=== PATIENT | female | born 1940 | race Two or more races ===

== ENCOUNTER 2018-09-17 05:16 | Inpatient (IN) | payer OTHER ==
[~2018-09-17] VITALS: Ht 170.2 cm; Wt 117.1 kg
--- NOTE | 2018-09-17 05:43 | NUR ---
MS RN NOTES: PATIENT CAME TO THE FLOOR, AWAKE ALERT AND ORIENTED X4, AMBULATORY. NOT IN RESPIRATORY DISTRESS. SCHEDULED FOR SX OF THE RIGHT KNEE REPLACEMENT. JEWELRIES REMOVED EXCEPT THE RIGHT HAND FINGER WEDDING RING, CLOTHINGS REMOVED AND GOWN ON. PATIENT STATED SHE IS NPO SINCE 2330 LAST NIGHT.
[2018-09-17] MEDS ORDERED: METOCLOPRAMIDE HCL 10 MG/2 ML VIAL IV ONE (06:00)
[2018-09-17] MEDS ORDERED: CELECOXIB 100 MG CAPSULE PO ONE (06:00)
[2018-09-17] MEDS ORDERED: oxyCODONE HCL SR 10MG TAB.SR.12H PO ONE (06:00)
--- NOTE | 2018-09-17 06:23 | NUR ---
CONSENT FOR RIGHT KNEE REPLACEMENT AND BLOOD TRANSFUSION SIGNED BY THE PATIENT AND ATTACHED TO THE CHART. COPIES MADE AND GIVEN TO THE PATIENT.
[2018-09-17] MEDS ORDERED: BUPIVACAINE MPF 0.5% W/EPI INJ 30 ML VIAL ONE (06:40)
[2018-09-17] MEDS ORDERED: KETOROLAC TROMETHAMINE INJ 30 MG/ML VIAL ONE ×2 (06:40→10:34)
[2018-09-17] MEDS ORDERED: ANESTHESIA TRAY IN PYXIS 1 EA TRAY MC ONE (06:40)
[2018-09-17] MEDS ORDERED: MORPHINE SULFATE INJ 4 MG/ML DISP.SYRIN ONE (06:40)
[2018-09-17] MEDS ORDERED: BACITRACIN 50000 UNITS/VIAL ONE (06:40)
[2018-09-17] MEDS ORDERED: MIDAZOLAM HCL 2 MG/2ML VIAL ONE (07:12)
[2018-09-17] MEDS ORDERED: ROCURONIUM BROMIDE 50 MG/5 ML ONE (07:13)
[2018-09-17] MEDS ORDERED: FENTANYL PF 250MCG/5ML AMPUL ONE ×2 (07:13)
[2018-09-17] MEDS ORDERED: FAMOTIDINE/PF INJ 20 MG/2 ML VIAL IV ONE (07:14)
--- NOTE | 2018-09-17 07:18 | NUR ---
MS RN CLOSING NOTES: PATIENT WAS PICKED UP FOR SX AT 0650. CALLED SABINE AT [id number] RE: PRE-OP MEDS ARE NOT GIVEN PRIOR FOR PICK-UP, MEDS ARE NOT AVAILABLE YET FROM THE [facility].
[2018-09-17] MEDS ORDERED: TRANEXAMIC ACID 1,500 MG in IV NS 0.9% 50 ML IV ONE (08:00)
[2018-09-17] MEDS ORDERED: ACETAMINOPHEN ES 500 MG TABLET PO ONE (08:44)
[2018-09-17] MEDS ORDERED: FENTANYL PF 100MCG/2ML AMPUL ONE ×2 (10:34→10:54)
[2018-09-17] MEDS ORDERED: oxyCODONE IR immediate release 5 MG ONE (11:09)
[2018-09-17] MEDS ORDERED: ASPIRIN 325 MG TABLET PO ONE (11:30)
[2018-09-17] MEDS ORDERED: COLACE 100 MG CAPSULE PO PRN (12:00)
[2018-09-17] MEDS: ONDANSETRON HCL/PF 4 MG/2 ML VIAL IVP SCH ×2 (12:00→18:00)
[2018-09-17] MEDS ORDERED: TYLENOL 650 MG TABLET PO PRN (12:00)
[2018-09-17] MEDS ORDERED: AMBIEN 5 MG TABLET PO PRN (12:00)
[2018-09-17] MEDS ORDERED: DULCOLAX 10 MG/SUPP.RECT RC PRN (12:00)
[2018-09-17] MEDS ORDERED: HYDROMORPHONE 1 MG/1 ML DISP.SYRIN IV PRN (12:00)
[2018-09-17] MEDS: KETOROLAC TROMETHAMINE INJ 30 MG/ML VIAL IV SCH ×2 (12:00→18:00)
--- NOTE | 2018-09-17 12:00 | NUR ---
MS/RN PATIENT TRANSFERRED TO MS FLOOR IN STABLE CONDITION VIA BED ACCOMPANIED BY SURGERY RN. S/P RIGHT KNEE REPLACEMENT. A/O X 4. NO SIGNS OF ACUTE DISTRESS. ON OXYGEN 2LPM VIA NC. TOLERATING WELL. COMPLAIN OF PAIN TO RIGHT KNEE RATED 5/10. PAIN MEDICATIONS GIVEN IN POST OP PRIOR TO PATIENT ARRIVAL ON FLOOR. ALL NEEDS ATTENDED TO. CALL LIGHT WITHIN REACH. ALL ORDERS BY DR NEGRETE NOTED AND CARRIED OUT. WILL CONTINUE TO MONITOR TO ENSURE SAFETY.
[2018-09-17 12:33] VITALS: BP 127/64
[2018-09-17] MEDS: IV D5/0.45 NACL 1,000 ML IV PRN (12:54)
[2018-09-17] MEDS: HYDROCODONE/APAP 5/325MG 1 EACH TABLET PO SCH ×3 (13:08→20:00)
[2018-09-17] MEDS ORDERED: BENA1TAB18 PO (13:25)
[2018-09-17] MEDS ORDERED: FENO145T35 PO (13:25)
[2018-09-17 16:00] VITALS: BP 104/60
[2018-09-17] MEDS: ASPIRIN EC 325 MG TABLET.DR PO SCH (17:11)
[2018-09-17] MEDS: CELECOXIB 100 MG CAPSULE PO SCH (17:11)
--- NOTE | 2018-09-17 18:29 | NUR ---
MS/RN CLOSING NOTE PATIENT IN BED IN STABLE CONDITION. A/O X 4. NO SIGNS OF ACUTE DISTRESS. NO COMPLAIN OF PAIN OR DISCOMFORT AT THIS TIME. REFUSED SCHEDULE TORADOL AND ZOFRAN IVP OFFERED X 3 WITH RISKS AND BENEFITS EXPLAINED, PER PATIENT, SHE DOESN'T HAVE ANY PAIN AT THIS MOMENT AND NO NAUSEA EITHER IF SHE DOES HAVE PAIN SHE WILL ASK FOR PAIN MEDICINE. ALL NEEDS ATTENDED TO AT THIS TIME. CALL LIGHT WITHIN REACH. WILL ENDORSE TO NEXT SHIFT FOR CONTINUITY OF CARE.
--- NOTE | 2018-09-17 19:20 | NUR ---
MS RN NOTES RECEIVED PT IN BED AWAKE AND ABLE TO MAKE NEEDS KNOWN. PT A/O X4. RESPIRATIONS EVEN AND UNLABORED WITH NO S/S OF ACUTE DISTRESS OR SOB NOTED. PT DENIES PAIN AT THIS TIME. SAFETY MEASURES IN PLACE WITH BED IN LOWEST LOCKED POSITIONS WITH SIDE RAILS UP X2. CALL LIGHT WITHIN REACH. WILL CONTINUE TO MONITOR.
[2018-09-17 20:00] VITALS: BP 128/74
--- NOTE | 2018-09-17 21:13 | NUR ---
MS RN NOTE PT REFUSED SCHEDULED PAIN MEDICATION NORCO. EXPLAINED RISKS AND BENEFITS TO PT AND PT VERBALIZED UNDERSTANDING.
[2018-09-18] MEDS: KETOROLAC TROMETHAMINE INJ 30 MG/ML VIAL IV SCH ×5 (01:00→23:58)
[2018-09-18] MEDS: ONDANSETRON HCL/PF 4 MG/2 ML VIAL IVP SCH ×2 (01:00→06:00)
[2018-09-18] MEDS: HYDROCODONE/APAP 5/325MG 1 EACH TABLET PO SCH ×8 (01:01→23:58)
[2018-09-18] MEDS: IV D5/0.45 NACL 1,000 ML IV PRN ×2 (03:11→17:47)
--- NOTE | 2018-09-18 04:41 | NUR ---
MS RN NOTE PT REFUSED SCHEDULED PAIN MEDICATION NORCO.
--- NOTE | 2018-09-18 07:02 | NUR ---
MS RN NOTE PT REFUSED SCHEDULED MEDICATION TORADOL AND ZOFRAN.
--- NOTE | 2018-09-18 07:50 | NUR ---
MS RN NOTES PT IN BED AWAKE AND ABLE TO MAKE NEEDS KNOWN. PT A/O X4. RESPIRATIONS EVEN AND UNLABORED WITH NO S/S OF ACUTE DISTRESS OR SOB NOTED THROUGHOUT SHIFT. PT DENIES PAIN AT THIS TIME. SAFETY MEASURES IN PLACE WITH BED IN LOWEST LOCKED POSITIONS WITH SIDE RAILS UP X2. PT KEPT CLEAN, DRY, AND COMFORTABLE. CALL LIGHT WITHIN REACH. WILL ENDORSE TO ONCOMING NURSE FOR TRICIA.
[2018-09-18 08:00] VITALS: BP 92/54
--- NOTE | 2018-09-18 08:00 | NUR ---
RN MS NOTES PT IN BED, AWAKE, ALERT AND ORIENTED, NO COMPLAINT OF PAIN AT THIS TIME, RESPIRATIONS NORMAL, CALL LIGHT WITHIN REACH, IV FLUIDS INFUSING WELL, F/C IN PLACE, DRAINING WELL WIT CLEAR, YELLOW URINE, KEPT COMFORTABLE.
[2018-09-18] MEDS: HYDROCHLOROTHIAZIDE 25 MG TABLET PO SCH (08:38)
[2018-09-18] MEDS: ASPIRIN EC 325 MG TABLET.DR PO SCH ×2 (08:38→16:24)
[2018-09-18] MEDS: CELECOXIB 100 MG CAPSULE PO SCH ×2 (08:38→16:24)
[2018-09-18] MEDS: BENAZEPRIL HCL 20 MG TABLET PO SCH (08:39)
[2018-09-18] MEDS ORDERED: FENOFIBRATE NANOCRYS (145 MG) 145 MG TABLET PO SCH (09:00)
--- NOTE | 2018-09-18 09:46 | NUR ---
RN MS NOTES PT IN BED, AWAKE, ALERT AND ORIENTED, SEEN AND EXAMINED BY DR. NEGRETE, PLAN OF CARE DISCUSSED WITH PT, VERBALIZED UNDERSTANDING, DUE MEDS GIVEN.
[2018-09-18 12:17] LABS: BASOPHILS % (AUTO) 0.2 % (0.0-2.0); EOSINOPHILS % (AUTO) 2.2 % (0.0-6.0); HEMATOCRIT 30 % (33-45); HEMOGLOBIN 10.1 g/dL (11.5-14.8); LYMPHOCYTES # (AUTO) 0.8 /CMM (0.8-4.8); LYMPHOCYTES % (AUTO) 12.7 % (20.0-44.0); MEAN CORPUSCULAR HGB CONC 34 g/dl (31.0-36.0); MEAN CORPUSCULAR VOLUME 90 fL (82-100); MONOCYTES # (AUTO) 0.3 /CMM (0.1-1.30); MONOCYTES % (AUTO) 5.3 % (2.0-12.0); NEUTROPHILS # (AUTO) 5.2 /CMM (1.8-8.9); NEUTROPHILS % (AUTO) 79.6 % (43.0-81.0); PLATELET COUNT (AUTO) 142 /CMM (150-450); RED BLOOD CELL COUNT(AUTO) 3.31 MIL/uL (4.0-5.2); WHITE BLOOD COUNT (AUTO) 6.5 K/uL (4.3-11.0)
[2018-09-18] MEDS: DOCUSATE SODIUM 100 MG CAPSULE PO SCH ×2 (12:19→16:23)
[2018-09-18 12:26] LABS: CALCIUM, SERUM 7.9 mg/dL (8.5-10.1); CARBON DIOXIDE 20 mmol/L (21-32); CHLORIDE 106 mmol/L (98-107); CREATININE 2.1 mg/dL (0.6-1.3); GLUCOSE 148 mg/dL (74-106); POTASSIUM 4.8 mmol/L (3.5-5.1); SODIUM SERUM 136 mmol/L (136-145); UREA NITROGEN, BLOOD 45 mg/dL (7-18)
[2018-09-18] MEDS ORDERED: PYRI50TA15 PO (15:52)
[2018-09-18] MEDS ORDERED: NIAC500T7 PO (15:52)
[2018-09-18] MEDS ORDERED: MULT-594 PO (15:52)
[2018-09-18] MEDS ORDERED: CA C1TAB98 PO (15:52)
[2018-09-18] MEDS ORDERED: ASCO500T9 PO (15:52)
[2018-09-18] MEDS ORDERED: VITA400C71 PO (15:52)
[2018-09-18] MEDS ORDERED: PANT500T PO (15:54)
[2018-09-18 16:00] VITALS: BP 94/45
--- NOTE | 2018-09-18 18:14 | NUR ---
RN MS NOTES PT IN BED, AWAKE, ALERT AND ORIENTED, WATCHING TV, NO COMPLAINT OF PAIN AT THIS TIME, RESPIRATIONS NORMAL, F/C IN PLACE, PM MEDS GIVEN, SEEN BY PHYSICAL THERAPIST TODAY, ABLE TO WALK WITH A WALKER, TOLERATED CPM TREATMENT WELL, TOLERATING CURRENT DIET WELL, PAIN MEDICATION GIVEN ORDERED, ASSISTED WITH TOILETING NEEDS, IV FLUIDS INFUSING WELL, ALL NEEDS ATTENDED.
--- NOTE | 2018-09-18 19:05 | NUR ---
MS RN OPENING NOTES Received patient sleeping in bed, comfortable. Breathing even and unlabored. Not in any distress. Peripheral IV infusing at 75mL/hr. Go catheter in place. Immobilizer in place. Call dye within easy reach. Bed in low, locked position. Patient stable as endorsed by the AM RN. Will continue to monitor accordingly
[2018-09-18 20:00] VITALS: BP_SYST 101; BP_DIAS 41; BP_DIAS 46
[2018-09-18] MEDS: FENOFIBRATE NANOCRYS (145 MG) 145 MG TABLET PO SCH (21:41)
[2018-09-19] MEDS: HYDROCODONE/APAP 5/325MG 1 EACH TABLET PO SCH ×6 (04:06→23:57)
--- NOTE | 2018-09-19 04:10 | NUR ---
RN NOTES Patient requesting to use the CPM machine. CPM machine put on together with CN. Patient was complaining of too much pain and pressure at 45degress. CPM machine's flexion adjusted to 30 degrees. Patient verbalized that she is more comfortable at 30 degrees.
[2018-09-19] MEDS: IV D5/0.45 NACL 1,000 ML IV PRN (05:00)
[2018-09-19 06:15] VITALS: BP 100/50
--- NOTE | 2018-09-19 06:15 | NUR ---
RN NOTES Patient requested to be off the CPM machine. Immobilizer in place now.
[2018-09-19] MEDS: KETOROLAC TROMETHAMINE INJ 30 MG/ML VIAL IV SCH (06:19)
--- NOTE | 2018-09-19 06:56 | NUR ---
MS RN CLOSING NOTES Patient sitting up in bed, alert, oriented x 4. Breathing even and unlabored. Not in any distress. Peripheral IV infusing at 75mL/hr. Go catheter in place- drained 400mL of clear yellow urine. Immobilizer on right leg. All needs attended to. Will endorse TRICIA to oncoming RN
--- NOTE | 2018-09-19 07:30 | NUR ---
rn opening notes received patient in bed resting. a/ox4, able to make needs known. not in any form of distress, no sob. denied pain and discomfort at this time. iv access, intact and patent. vanegas in place draining clear yellow urine. immobilizer on right leg in place. kept pt safe and comfortable. bed in low/locked position, siderails upx2, call light in reach. will continue to moniotr accordingly.
[2018-09-19 08:00] VITALS: BP 87/51
[2018-09-19 08:06] VITALS: BP 92/51
[2018-09-19] MEDS: ASPIRIN EC 325 MG TABLET.DR PO SCH ×2 (08:55→16:56)
[2018-09-19] MEDS: DOCUSATE SODIUM 100 MG CAPSULE PO SCH ×2 (08:55→16:56)
[2018-09-19] MEDS: CELECOXIB 100 MG CAPSULE PO SCH ×2 (08:57→16:56)
[2018-09-19] MEDS: HYDROCHLOROTHIAZIDE 25 MG TABLET PO SCH (09:00)
[2018-09-19] MEDS: BENAZEPRIL HCL 20 MG TABLET PO SCH (09:00)
[2018-09-19] MEDS ORDERED: IV NS 0.9% 500 ML IV ONE (09:00)
--- NOTE | 2018-09-19 09:01 | NUR ---
bp meds held, decrease bp. bp=92/51. roxanne moya at bedside talking to patient, made him aware of patient's bp. per roxanne, give 500ml ns bolus, noted and will carry out order. Addendum: 09/19/18 at 0907 by SHAHEED PETERSON correction: bp= 87/51
[2018-09-19 10:23] LABS: CALCIUM, SERUM 7.4 mg/dL (8.5-10.1); CARBON DIOXIDE 21 mmol/L (21-32); CHLORIDE 103 mmol/L (98-107); CREATININE 2.6 mg/dL (0.6-1.3); GLUCOSE 118 mg/dL (74-106); POTASSIUM 4.8 mmol/L (3.5-5.1); SODIUM SERUM 131 mmol/L (136-145); UREA NITROGEN, BLOOD 51 mg/dL (7-18)
--- NOTE | 2018-09-19 12:30 | NUR ---
REFUSED SCHEDULED PAIN MEDS NORCO. PER PATIENT, "I DONT WANT ANY PAIN MEDS RIGHT NOW".
[2018-09-19 12:53] LABS: APPEARANCE,URINE SL CLOUDY (CLEAR); BILIRUBIN,URINE NEGATIVE (NEGATIVE); BLOOD, URINE 3+ Ery/uL (NEGATIVE); COLOR,URINE YELLOW (YELLOW); KETONES,URINE NEGATIVE (NEGATIVE); LEUKOCYTE ESTERASE ,URINE NEGATIVE (NEGATIVE); NITRITE, URINE NEGATIVE (NEGATIVE); PROTEIN,URINE NEGATIVE (NEGATIVE); UGLUCOSE NEGATIVE (NEGATIVE); UROBILINOGEN,URINE 0.2 EU/dL (0.2)
[2018-09-19 12:55] LABS: CREATININE, URINE 117.2 MG/DL (30.0-125.0); URINE TOTAL PROTEIN 30.5 mg/dL (0-11.9)
[2018-09-19 13:36] LABS: RBC,URINE 51-80 /HPF (0-2)
[2018-09-19 13:37] LABS: BACTERIA,URINE Few /HPF (None Seen); SQUAMOUS EPITHELIAL CELL,UR Few /HPF (None Seen)
[2018-09-19 13:50] LABS: EOSINOPHIL,URINE None Seen
[2018-09-19 16:00] VITALS: BP 119/59
--- NOTE | 2018-09-19 16:59 | NUR ---
REFUSED SCHEDULED PAIN MEDS NORCO. PER PATIENT, "NO PAIN MEDS, IM OK". WILL CONTINUE TO MONITOR
--- NOTE | 2018-09-19 19:00 | NUR ---
DC'd CLARKE ORDERED, NO COMPLICATIONS, PATIENT TOLERATED WELL. ANNIE BRAGG AT BEDSIDE WITNESS.
--- NOTE | 2018-09-19 19:30 | NUR ---
RN MS OPENING NOTES RECEIVED PATIENT IN BED AWAKE, ALERT AND ORIENTED X4, VERBALLY RESPONSIVE, ABLE TO MAKE NEEDS KNOWN. BREATHING EVEN AND UNLABORED. NO SOB NOTED. TOLERATING ROOM AIR. CURRENTLY WITH NO COMPLAINTS OF PAIN OR DISCOMFORT. NO FACIAL GRIMACING. IV ON RIGHT WRIST G#20 INTACT AND PATENT. SKIN DRY AND WARM TO TOUCH. AFEBRILE. PATIENT HAS RIGHT KNEE IMMOBILIZER ON AND ELEVATED. ALL OTHER NEEDS ATTENDED TO. SAFETY MEASURES IN PLACE. CALL LIGHT WITHIN REACH. WILL CONTINUE TO MONITOR.
--- NOTE | 2018-09-19 19:37 | NUR ---
RN CLOSING NOTES PATIENT IN STABLE CONDITION. ALL NEED ATTENDED AND PROVIDED. ALL DUE MEDS GIVEN ORDERED. KEPT PATIENT SAFE AND COMFORTABLE. BED IN LOW.LOCKED POSITION, SIDERAILS UP, CALL LIGHT IN REACH. ENDORSED TO NIGHT RN FOR TRICIA.
[2018-09-19 20:00] VITALS: BP 129/63
--- NOTE | 2018-09-19 20:00 | NUR ---
RN MS NOTES PATIENT REFUSED SCHEDULED NORCO. PER PATIENT "I DON'T NEED IT, IM NOT IN PAIN."
[2018-09-19] MEDS: FENOFIBRATE NANOCRYS (145 MG) 145 MG TABLET PO SCH (21:15)
--- NOTE | 2018-09-20 | NUR ---
RN MS NOTES PATIENT REFUSED SCHEDULED NORCO. PER PATIENT "I'M NOT IN PAIN".
[2018-09-20] MEDS: HYDROCODONE/APAP 5/325MG 1 EACH TABLET PO SCH ×5 (04:00→20:04)
--- NOTE | 2018-09-20 04:26 | NUR ---
RN MS NOTES PATIENT REFUSED SCHEDULED NORCO. PER PATIENT "I DON'T NEED IT, IM NOT IN PAIN."
[2018-09-20 06:31] LABS: BASOPHILS % (AUTO) 0.3 % (0.0-2.0); EOSINOPHILS % (AUTO) 2.8 % (0.0-6.0); HEMATOCRIT 29 % (33-45); HEMOGLOBIN 9.7 g/dL (11.5-14.8); LYMPHOCYTES % (AUTO) 11.7 % (20.0-44.0); MEAN CORPUSCULAR HGB CONC 34 g/dl (31.0-36.0); MEAN CORPUSCULAR VOLUME 90 fL (82-100); MONOCYTES # (AUTO) 0.7 /CMM (0.1-1.30); MONOCYTES % (AUTO) 7.8 % (2.0-12.0); NEUTROPHILS # (AUTO) 6.7 /CMM (1.8-8.9); NEUTROPHILS % (AUTO) 77.4 % (43.0-81.0); PLATELET COUNT (AUTO) 160 /CMM (150-450); RED BLOOD CELL COUNT(AUTO) 3.22 MIL/uL (4.0-5.2); WHITE BLOOD COUNT (AUTO) 8.6 K/uL (4.3-11.0)
--- NOTE | 2018-09-20 06:47 | NUR ---
RN MS CLOSING NOTES PATIENT RESTING IN BED. NO ACUTE CHANGES THROUGHOUT SHIFT. BREATHING EVEN AND UNLABORED. NO SOB NOTED. TOLERATING ROOM AIR. NO COMPLAINTS OF PAIN OR DISCOMFORT. REFUSED ALL SCHEDULED NORCO. IV ON RIGHT WRIST G#20 INTACT AND PATENT. PATIENT HAD A SMALL SMEAR OF BM AFTER DULCOLAX SUPP. KEPT CLEAN DRY AND COMFORTABLE. PATIENT HAS RIGHT KNEE IMMOBILIZER ON AND ELEVATED. ALL OTHER NEEDS ATTENDED TO. SAFETY MEASURES IN PLACE. CALL LIGHT WITHIN REACH. WILL ENDORSE TO ONCOMING NURSE FOR TRICIA.
[2018-09-20 06:52] LABS: ALANINE AMINOTRANSFERASE 21 U/L (12-78); ALBUMIN 2.4 g/dL (3.4-5.0); ALKALINE PHOSPHATASE 62 U/L (46-116); ASPARTATE AMINOTRANSFERASE 27 U/L (15-37); BILIRUBIN,TOTAL 0.4 mg/dL (0.2-1.0); CALCIUM, SERUM 8.2 mg/dL (8.5-10.1); CARBON DIOXIDE 20 mmol/L (21-32); CHLORIDE 106 mmol/L (98-107); GLUCOSE 102 mg/dL (74-106); MAGNESIUM 2.2 mg/dL (1.8-2.4); PHOSPHORUS 2.8 mg/dL (2.5-4.9); POTASSIUM 5.1 mmol/L (3.5-5.1); SODIUM SERUM 135 mmol/L (136-145); TOTAL PROTEIN, SERUM 6.2 g/dL (6.4-8.2); UREA NITROGEN, BLOOD 49 mg/dL (7-18)
[2018-09-20 06:59] LABS: CREATINE KINASE, TOTAL 260 U/L (26-192)
[2018-09-20] MEDS ORDERED: MAGNESIUM HYDROXIDE 30 ML UDC PO PRN (07:00)
--- NOTE | 2018-09-20 07:37 | NUR ---
MS RN OPENING NOTES RECEIVED PT LAYING IN BED WITH HOB ELEVATED. PT IS A/O X4, AFEBRILE. RESPIRATIONS ARE EVEN AND UNLABORED, NOT IN ANY ACUTE DISTRESS NOTED. PT C/O PAIN TO RIGHT LEG "ONLY WHEN I MOVE IT." DENIES ANY SOB, N/V. WILL MEDICATE FOR PAIN ACCORDINGLY. IV SITE TO RIGHT WRIST INTACT, NO INFILTRATION NOTED. DRESSING KEPT CLEAN AND DRY. ENCOURAGED PT TO USE BEDSIDE COMMODE WITH ASSISTANCE AND DRINK FLUIDS TOLERATED FOR BOWEL MOVEMENT. INSTRUCTED PT TO USE CALL LIGHT WHEN ASSISTANCE IS NEEDED, CALL LIGHT IS LEFT WITHIN REACH. WILL CONTINUE TO MONITOR THROUGHOUT SHIFT FOR CONTINUITY OF CARE.
[2018-09-20 08:00] VITALS: BP 156/77
[2018-09-20] MEDS: DOCUSATE SODIUM 100 MG CAPSULE PO SCH ×2 (08:18→17:26)
[2018-09-20] MEDS: BENAZEPRIL HCL 20 MG TABLET PO SCH (08:19)
[2018-09-20] MEDS: ASPIRIN EC 325 MG TABLET.DR PO SCH ×2 (08:19→17:26)
[2018-09-20] MEDS: HYDROCHLOROTHIAZIDE 25 MG TABLET PO SCH (08:20)
[2018-09-20] MEDS: CELECOXIB 100 MG CAPSULE PO SCH ×2 (08:21→17:27)
--- NOTE | 2018-09-20 08:30 | NUR ---
MS RN NOTES-- PT SEEN AND EXAMINED BY LOLY MAYO NP.
--- NOTE | 2018-09-20 11:04 | NUR ---
MS RN NOTES-- PT WAS SEEN BY PHYSICAL THERAPY AND ABLE TO TRANSFER TO TOILET. PT HAD 1 LARGE BM.
--- NOTE | 2018-09-20 14:25 | NUR ---
MS RN NOTES-- PT ABLE TO MAKE NEEDS KNOWN. NEEDS MET AND RENDERED. PT NOT IN ANY APPARENT DISTRESS. WILL CONTINUE TO MONITOR.
--- NOTE | 2018-09-20 18:30 | NUR ---
MS RN CLOSING NOTES ALL DUE MEDS GIVEN, NEEDS MET AND RENDERED. PT REMAINS A/O X4, AFEBRILE. RESPIRATIONS ARE EVEN AND UNLABORED, NOT IN ANY ACUTE DISTRESS NOTED. PT C/O PAIN TO RIGHT KNEE "ONLY WHEN I MOVE IT." DENIES ANY SOB, N/V. IV SITE TO RIGHT WRIST G20 INTACT, NO INFILTRATION NOTED. DRESSING KEPT CLEAN AND DRY. SAFETY MEASURES ARE IN PLACE. ENCOURAGED PT TO USE COMMODE/TOILET WITH ASSISTANCE TO GAIN MOBILITY. REMINDED PT TO USE CALL LIGHT WHEN ASSISTANCE IS NEEDED, CALL LIGHT IS LEFT WITHIN REACH. WILL ENDORSE TO NEXT SHIFT FOR CONTINUITY OF CARE.
[2018-09-20 20:00] VITALS: BP 130/73
[2018-09-20] MEDS: FENOFIBRATE NANOCRYS (145 MG) 145 MG TABLET PO SCH ×2 (21:34→21:46)
--- NOTE | 2018-09-20 21:46 | NUR ---
RN MS NOTES PATIENT REFUSED TO TAKE HER SCHEDULED FENOFIBATE TONIGHT. PER PATIENT SHE TAKES THIS MEDICATION EVERY OTHER DAY. INFORMED PATIENT THAT THE DOCTOR SCHEDULED THIS TO BE TAKEN EVERY DAY AT BEDTIME. PATIENT STILL REFUSED MEDICATION. EXPLAINED RISKS AND BENEFITS AND STILL REFUSED. MEDICATION WAS OPENED BUT WASTED.
--- NOTE | 2018-09-21 00:07 | NUR ---
RN MS NOTES PATIENT REFUSED SCHEDULED NORCO. PER PATIENT "I'M NOT IN PAIN".
[2018-09-21] MEDS: HYDROCODONE/APAP 5/325MG 1 EACH TABLET PO SCH ×7 (04:00→23:21)
--- NOTE | 2018-09-21 04:15 | NUR ---
RN MS NOTES PATIENT REFUSED SCHEDULED NORCO. PER PATIENT "I'M NOT IN PAIN".
--- NOTE | 2018-09-21 06:54 | NUR ---
RN MS CLOSING NOTES PATIENT RESTING IN BED. NO ACUTE CHANGES THROUGHOUT SHIFT. BREATHING EVEN AND UNLABORED. NO SOB NOTED. TOLERATING ROOM AIR. NO COMPLAINTS OF PAIN OR DISCOMFORT. NO FACIAL GRIMACING. IV ON RIGHT WRIST G#20 INTACT AND PATENT. KEPT CLEAN DRY AND COMFORTABLE. PATIENT HAS RIGHT KNEE IMMOBILIZER ON AND ELEVATED. ALL OTHER NEEDS ATTENDED TO. SAFETY MEASURES IN PLACE. CALL LIGHT WITHIN REACH. WILL ENDORSE TO ONCOMING NURSE FOR TRICIA.
--- NOTE | 2018-09-21 07:40 | NUR ---
MS RN RECEIVED ON BED, AWAKE,ALERT,ORIENTED X4,NOT IN ANY FORM OF DISTRESS,RESPIRATIONS EVEN AND UNLABORED,NO SOB NOTED, LUNGS ARE CLEAR,ABDOMEN SOFT,POSITIVE BOWEL SOUNDS,DENIES PAIN AT THIS TIME,ALL NEEDS ATTENDED.
[2018-09-21 08:00] VITALS: BP 147/73
[2018-09-21] MEDS: DOCUSATE SODIUM 100 MG CAPSULE PO SCH ×2 (08:41→17:20)
[2018-09-21] MEDS: ASPIRIN EC 325 MG TABLET.DR PO SCH ×2 (08:41→17:20)
[2018-09-21] MEDS: CELECOXIB 100 MG CAPSULE PO SCH ×2 (08:41→17:20)
[2018-09-21] MEDS: LOTENSIN PO SCH ×2 (08:43→09:17)
--- NOTE | 2018-09-21 09:15 | NUR ---
MS VALENCIA BREAKFAST SERVED,DUE MEDS GIVEN,TOLERATED WELL.
--- NOTE | 2018-09-21 14:00 | NUR ---
MS RN CALLED DR. NEGRETE FOR DRESSING CHANGE, WA TOLD THAT PATIENT CAN GO W/ HOME THE DRESSING, AND HAVE A FOLLOW UP CHAECK UP WITH HIM, DON'T OPE IT.
[2018-09-21 16:00] VITALS: BP 152/84
--- NOTE | 2018-09-21 18:47 | NUR ---
MS RN ON BED, NO DISTRESS NOTED.
--- NOTE | 2018-09-21 19:45 | NUR ---
MS RN NOTE: PATIENT RESTING IN BED, NO ACUTE DISTRESS NOTED. BREATHING EVEN AND UNLABORED, NO SOB NOTED. IV TO RIGHT WRIST IN PLACE. BED LOCKED AND IN LOWEST POSITION, CALL LIGHT IN REACH. WILL CONTINUE TO MONITOR.
[2018-09-21 20:00] VITALS: BP 134/79
--- NOTE | 2018-09-21 21:00 | NUR ---
MS RN NOTE: PATIENT WITH SCHEDULED NORCO 5/325MG 1 TAB ORAL EVERY 4 HOURS, PATIENT REFUSES MEDICATION, DENIES ANY PAIN AT THIS TIME. EXPLAINED RISK AND BENEFITS, BUT PATIENT CONTINUES TO REFUSE MEDICATION. WILL CONTINUE TO MONITOR.
[2018-09-21] MEDS: FENOFIBRATE NANOCRYS (145 MG) 145 MG TABLET PO SCH (22:19)
[2018-09-22] MEDS: HYDROCODONE/APAP 5/325MG 1 EACH TABLET PO SCH ×6 (04:00→23:50)
--- NOTE | 2018-09-22 06:20 | NUR ---
MS RN NOTE: PATIENT RESTING IN BED, NO ACUTE DISTRESS NOTED. BREATHING EVEN AND UNLABORED, NO SOB NOTED. IV TO RIGHT WRIST IN PLACE. BED LOCKED AND IN LOWEST POSITION, CALL LIGHT IN REACH. WILL ENDORSE TO DAY NURSE TO CONTINUE WITH PLAN OF CARE.
--- NOTE | 2018-09-22 07:30 | NUR ---
ms rn received on bed, awake,alert,oriented x4,not in any form of distress, respirations even and unlabored,no sob noted, lungs are clear,abdomen soft,positive bowel sounds,denies pain at this time, right knee sx w/ immobilizer on,will monitor patient's condition.
[2018-09-22 08:00] VITALS: BP 154/77
[2018-09-22 08:10] LABS: *SPE A/G RATIO 0.7 (0.7-1.7); *SPE ALBUMIN 2.3 g/dL (2.9-4.4); *SPE ALPHA-1-GLOBULIN 0.6 g/dL (0.0-0.4); *SPE ALPHA-2-GLOBULIN 0.8 g/dL (0.4-1.0); *SPE GLOBULIN, TOTAL 3.2 g/dL (2.2-3.9); *SPE M-SPIKE Not Observed g/dL (Not Observed); *SPEGAMMA GLOBULIN 0.8 g/dL (0.4-1.8)
[2018-09-22] MEDS: DOCUSATE SODIUM 100 MG CAPSULE PO SCH ×2 (08:58→17:05)
[2018-09-22] MEDS: CELECOXIB 100 MG CAPSULE PO SCH ×2 (08:59→17:05)
[2018-09-22] MEDS: ASPIRIN EC 325 MG TABLET.DR PO SCH ×2 (08:59→17:05)
[2018-09-22] MEDS: LOTENSIN PO SCH (09:00)
--- NOTE | 2018-09-22 09:00 | NUR ---
MS RN DUE MEDS GIVEN,TOLERATED WELL.
--- NOTE | 2018-09-22 10:00 | NUR ---
MS RN WAS SEEN BY PT,TOLERATED WELL W/ WALKER.
[2018-09-22 13:07] LABS: PTH, INTACT 105 pg/mL (15-65)
[2018-09-22 16:00] VITALS: BP 151/70
--- NOTE | 2018-09-22 17:00 | NUR ---
MS RN PT SPOKE W/ CHIP PERSON, STILL DISCHARGE PENDING AT THIS TIME.
--- NOTE | 2018-09-22 19:23 | NUR ---
RN MS OPENING NOTES RECEIVED PATIENT IN BED AWAKE, ALERT AND ORIENTED X4, VERBALLY RESPONSIVE, ABLE TO MAKE NEEDS KNOWN. BREATHING EVEN AND UNLABORED. NO SOB NOTED. TOLERATING ROOM AIR. CURRENTLY WITH NO COMPLAINTS OF PAIN OR DISCOMFORT. NO FACIAL GRIMACING. IV ON RIGHT WRIST G#20 INTACT AND PATENT. SKIN DRY AND WARM TO TOUCH. AFEBRILE. ALL OTHER NEEDS ATTENDED TO. SAFETY MEASURES IN PLACE. CALL LIGHT WITHIN REACH. WILL CONTINUE TO MONITOR.
[2018-09-22 20:00] VITALS: BP 132/70
--- NOTE | 2018-09-22 20:05 | NUR ---
RN MS NOTES PATIENT REFUSED SCHEDULED NORCO. PER PATIENT "I'M NOT IN PAIN". WILL CONTINUE TO MONITOR.
[2018-09-22] MEDS: FENOFIBRATE NANOCRYS (145 MG) 145 MG TABLET PO SCH (22:00)
--- NOTE | 2018-09-22 22:22 | NUR ---
RN MS NOTES PATIENT REFUSED TO TAKE HER SCHEDULED FENOFIBATE TONIGHT. PER PATIENT SHE TAKES THIS MEDICATION EVERY OTHER DAY. INFORMED PATIENT THAT THE DOCTOR SCHEDULED THIS TO BE TAKEN EVERY DAY AT BEDTIME. PATIENT STILL REFUSED MEDICATION. EXPLAINED RISKS AND BENEFITS AND STILL REFUSED. WILL CONTINUE TO MONITOR.
--- NOTE | 2018-09-22 23:50 | NUR ---
RN MS NOTES PATIENT REFUSED SCHEDULED NORCO. PER PATIENT "I'M NOT IN PAIN". WILL CONTINUE TO MONITOR.
--- NOTE | 2018-09-23 03:02 | NUR ---
RN MS NOTES PATIENT REQUESTED TO WALK AROUND THE UNIT BECAUSE SHE FEELS "RESTLESS". PER PATIENT "PT ALLOWED ME TO WALK BY MYSELF AROUND THE UNIT." ALSO PER PATIENT, "I DONT NEED ASSISTANCE TO WALK AROUND WITH, JUST THE WALKER." SHE SAID "NO ONE NEEDS TO STAND BY ME, ITS NOT NECESSARY." SCIENTIFIC ILLUSTRATOR STILL ON STAND BY IN CASE OF EMERGENCY. WILL CONTINUE TO MONITOR.
[2018-09-23] MEDS: HYDROCODONE/APAP 5/325MG 1 EACH TABLET PO SCH ×4 (03:44→16:00)
--- NOTE | 2018-09-23 03:45 | NUR ---
RN MS NOTES PATIENT REFUSED SCHEDULED NORCO. PER PATIENT "I DONT NEED IT". WILL CONTINUE TO MONITOR.
--- NOTE | 2018-09-23 06:35 | NUR ---
RN MS NOTES PATIENT REFUSED BLOOD WORKS THIS MORNING. EXPLAINED RISKS AND BENEFITS BUT STILL REFUSED. ASKED PHLEB TO COME BACK AT A LATER TIME AND TRY AGAIN. WILL ENDORSE TO ONCOMING NURSE.
--- NOTE | 2018-09-23 06:40 | NUR ---
RN MS CLOSING NOTES PATIENT RESTING IN BED. NO ACUTE CHANGES THROUGHOUT SHIFT. BREATHING EVEN AND UNLABORED. NO SOB NOTED. TOLERATING ROOM AIR. NO COMPLAINTS OF PAIN OR DISCOMFORT. NO FACIAL GRIMACING. IV ON RIGHT WRIST G#20 INTACT AND PATENT. KEPT CLEAN DRY AND COMFORTABLE. ALL OTHER NEEDS ATTENDED TO. SAFETY MEASURES IN PLACE. CALL LIGHT WITHIN REACH. WILL ENDORSE TO ONCOMING NURSE FOR TRICIA.
--- NOTE | 2018-09-23 07:35 | NUR ---
ms rn received on bed, awake,alert,oriented x4,not in any form of distress,respirations even and unlabored,no sob noted, lungs are clear,abdomen soft,positive bowel sounds,denies pain at this time, s/p right knee sx,site w/ dressing dry and intact,eill monitor patient's condition.
[2018-09-23 08:00] VITALS: BP 138/67
[2018-09-23] MEDS: CELECOXIB 100 MG CAPSULE PO SCH ×2 (09:00→17:00)
[2018-09-23] MEDS: DOCUSATE SODIUM 100 MG CAPSULE PO SCH ×2 (09:00→17:00)
[2018-09-23] MEDS: ASPIRIN EC 325 MG TABLET.DR PO SCH ×2 (09:00→17:00)
--- NOTE | 2018-09-23 09:00 | NUR ---
ms ka[employer] breakfast served,due meds given,tolerated well,
[2018-09-23] MEDS: LOTENSIN PO SCH (09:31)
[2018-09-23] MEDS ORDERED: ONDA4TAB5 PO (10:05)
[2018-09-23] MEDS ORDERED: ASPI-869 PO (10:05)
[2018-09-23] MEDS ORDERED: HYDR-4384 PO (10:05)
[2018-09-23 16:00] VITALS: BP 136/62
--- NOTE | 2018-09-23 16:00 | NUR ---
ms rn patient is accepted in [facility]. ready to go refused to take picture at incision site claiming that her ring is missing, no belonging list found during admission, another inventory list made now, charge nurse awake.
== END 2018-09-23 17:00 | DRG 469 ==
LOC: DS 05:16 → MED 05:19
PROVIDERS: ADMIT Nurse Practitioner Acute Care; ATTEND Nurse Practitioner Acute Care
PROC: 0SRC0J9 Replacement of Right Knee Joint with Synthetic Substitute, Cemented, Open Approach (ICD-10-PCS; principal; 2018-09-17)
DX: M17.11 Unilateral primary osteoarthritis, right knee (principal); N17.0 Acute kidney failure with tubular necrosis; Z68.41 Body mass index [BMI] 40.0-44.9, adult; N17.9 Acute kidney failure, unspecified; E87.1 Hypo-osmolality and hyponatremia; E44.1 Mild protein-calorie malnutrition; E78.5 Hyperlipidemia, unspecified; I10 Essential (primary) hypertension; E66.9 Obesity, unspecified; I12.9 Hypertensive chronic kidney disease with stage 1 through stage 4 chronic kidney disease, or unspecified chronic kidney disease; D69.6 Thrombocytopenia, unspecified; M81.0 Age-related osteoporosis without current pathological fracture; K59.00 Constipation, unspecified; E86.1 Hypovolemia; N18.3 Chronic kidney disease, stage 3 (moderate); D63.8 Anemia in other chronic diseases classified elsewhere
CPT/HCPCS: 36415; 73560-TC; 80048-TC; 80053-TC; 81000-TC; 82550-TC; 82570-TC; 83735-TC; 83970; 84100-TC; 84155; 84155-TC; 84165; 84300-TC; 85025-TC; 86850-TC; 87081-TC; 88305-TC; 88311-TC; 93970-TC; 97110-TC; 97116-TC; 97530-TC; 97535-TC; 97760-TC; A4216; A4217; A6402; C1713; G0378; J0690; J1885; J2250; J2270; J2405; J2704; J2765; J3010; J3490; J7040; L1830